=== PATIENT | female | born 1970 | race Caucasian/White ===

== ENCOUNTER 2018-12-07 09:47 | Day surgery (SDC) | payer OTHER ==
[2018-12-07] MEDS ORDERED: DIPRIVAN 200 MG/20 ML IV ONE (09:48)
[2018-12-07 10:16] VITALS: O2SAT 100
[2018-12-07] MEDS ORDERED: Lactated Ringers 1,000 ML IV ONE ×2 (10:20→11:50)
[2018-12-07] MEDS: Lactated Ringers 1,000 ML IV SCH (10:24)
[2018-12-07 12:57] VITALS: BP 139/83; PULSE 66
--- NOTE | 2018-12-16 08:53 | OP ---
PROCEDURE DATE/TIME: 12/07/2018 1120 PREOPERATIVE DIAGNOSIS: Screening, family history of colon cancer. POSTOPERATIVE DIAGNOSIS: Colon polyps and hemorrhoids. PROCEDURE: Colonoscopy with hot snare polypectomy and hot forceps polypectomy. PROCEDURE PERFORMED BY: Melinda Mae M.D. COMPLICATIONS: None. ESTIMATED BLOOD LOSS: Minimal. ANESTHESIA: MAC. PROCEDURE DETAILS: This is 48 year-old female who presents for screening colonoscopy. Risks, benefits, alternatives of the procedure were discussed with the patient preoperatively. She was seen in the preoperative area. H&P and consent reviewed as well as confirmed. DESCRIPTION OF PROCEDURE: She was then placed in the left lateral decubitus position. A complete time out was performed. First a rectal exam. The patient does have some hemorrhoidal tissue with anal tag, external disease as well as internal disease. We then inserted the colonoscope and gently advanced this to the level of the cecum. In the cecum the appendiceal orifice is visualized. The ileocecal valve visualized. The ileocecal valve looked normal. The appendiceal orifice itself looked normal. However very adjacent to this appendiceal orifice there was a sessile polyp that appeared to be about 1 cm in size. It had an irregular shape and contour and it was right at the edge of the appendiceal orifice. I was able to take a hot snare completely encircle the entire polyp and removed this with excellent resection encompassing the entire polyp. We retrieved this and sent the specimen to pathology as a cecal polyp. The site looked hemostatic. We then gently withdrew the scope and shortly identified another polyp which was able to be taken with hot forceps in its entirety, the site looked hemostatic and this was sent to pathology. Overall, she had very healthy appearing colonic mucosa other than the polyps. She also does have hemorrhoidal disease which was revisualized as we further withdrew the scope to the level of the rectum. She does have internal and external hemorrhoids and she does have a small anal tag which was visualized on retroflexion as well. This disease appears to be benign. The scope was then able to be completely withdrawn. Prep was satisfactory. The plan will be for follow up in my office to discuss the results of pathology report and based on this we will determine her next colonoscopy interval.
== END 2018-12-07 13:11 | disposition home or self-care (01) ==
LOC: SDC 09:47
PROVIDERS: ATTEND Surgery
DX: Z12.11 Encounter for screening for malignant neoplasm of colon (principal); D12.0 Benign neoplasm of cecum; D12.2 Benign neoplasm of ascending colon; K64.8 Other hemorrhoids; K64.4 Residual hemorrhoidal skin tags; Z80.0 Family history of malignant neoplasm of digestive organs
CPT/HCPCS: 88305; J2704

== ENCOUNTER 2020-12-11 10:04 | Day surgery (SDC) | payer OTHER ==
[~2020-12-11 10:04] MED LIST: Lactated Ringers 1,000 ML IV SCH
[2020-12-11] MEDS ORDERED: Lactated Ringers 1,000 ML IV ONE ×2 (10:23→12:25)
--- NOTE | 2020-12-11 11:06 | HP ---
HISTORY OF PRESENT ILLNESS: This is a patient who has a history of polyps. She is here for surveillance colonoscopy. PAST MEDICAL HISTORY: The patient denies. Sessile serrated adenoma. PAST SURGICAL HISTORY: Tonsillectomy, adenoidectomy. Cataract. Hand surgery. MEDICATIONS: None. ALLERGIES: NKDA. SOCIAL HISTORY: Negative. FAMILY HISTORY: Breast cancer. Colon cancer. Pancreatic cancer. Heart disease. Colon cancer history in her mother in her 70's. PHYSICAL EXAMINATION: GENERAL: No acute distress. CVS: Regular rate and rhythm. PULMONARY: Nonlabored. No shortness of breath. No cough. ABDOMEN: Soft, nontender, nondistended. EXTREMITIES: Extremities are at baseline. DIAGNOSIS: Surveillance. History of polyps. PLAN: Colonoscopy.
[2020-12-11] MEDS ORDERED: DIPRIVAN 200 MG/20 ML IV ONE ×2 (12:01→12:25)
[2020-12-11] MEDS ORDERED: Xylocaine-Mpf 2% 5 Ml Vial ONE (12:17)
[2020-12-11 13:02] VITALS: O2SAT 100
[2020-12-11 13:16] VITALS: BP 138/62; PULSE 67
--- NOTE | 2021-01-03 12:06 | OP ---
PROCEDURE DATE/TIME: 12/11/2020 1203 PREOPERATIVE DIAGNOSIS: History of serrated adenomatous polyp. POSTOPERATIVE DIAGNOSIS: Internal hemorrhoids. PROCEDURE: Colonoscopy. PROCEDURE PERFORMED BY: Melinda Mae M.D. COMPLICATIONS: None. ESTIMATED BLOOD LOSS: None. ANESTHESIA: MAC. SPECIMEN: None. PROCEDURE DETAILS: This is a patient who presents for colonoscopy. She has a history of serrated adenoma. Risks, benefits, alternatives regarding colonoscopy have been discussed with her in detail. She was seen in the preoperative area. Consent confirmed. H&P confirmed. DESCRIPTION OF PROCEDURE: The patient was then position in the left lateral decubitus position. A complete time out performed. First a rectal exam was done. The patient does have internal hemorrhoids and these are mild. The scope was then inserted and gently advanced to the level of the cecum. Appendiceal orifice and ileocecal valve were identified. The patient does not have any polyp tissue remaining. No new polyps. The scope was carefully withdrawn taking a circumferential view. Prep was satisfactory. As we withdrew we carefully inspected the mucosa and I did not find any further polyp. The ascending, transverse, descending, sigmoid and rectum all appeared normal. She does have internal hemorrhoids identified previously and verified. These are mild. The scope was then scope was then completely removed. The patient tolerated the procedure very well. No immediate complications. Due to her history the plan will be for colonoscopy in approximately five years for surveillance. She understands should she have any change in bowel function, pain, bleeding or any concerning symptoms she will follow up sooner and we will determine a plan based on those symptoms if those occur.
== END 2020-12-11 13:25 | disposition home or self-care (01) ==
LOC: SDC 10:04
PROVIDERS: ATTEND Surgery
DX: Z12.11 Encounter for screening for malignant neoplasm of colon (principal); Z86.010 Personal history of colon polyps; Z80.0 Family history of malignant neoplasm of digestive organs; Z80.3 Family history of malignant neoplasm of breast; Z80.8 Family history of malignant neoplasm of other organs or systems; K64.8 Other hemorrhoids
CPT/HCPCS: J2704